=== PATIENT | female | born 2000 | race Caucasian/White ===

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

== ENCOUNTER 2019-05-19 11:33 | Emergency (ER) | payer BC, OTHER ==
[~2019-05-19] VITALS: Ht 160 cm; Wt 49.9 kg
[2019-05-19 11:37] VITALS: BP_SYST 104
--- NOTE | 2019-05-19 11:39 | NUR ---
Placed in room 02 . Placed on cardiac cath lab manager, blood pressure machine and pulse oximeter. To gown for exam. Side rails up.
--- NOTE | 2019-05-19 11:45 | NUR ---
ER Dr. Mcgraw at bedside examining patient.
[2019-05-19] MEDS ORDERED: LORazepam 1 MG TABLET PO ONE (12:00)
[2019-05-19 12:04] LABS: BASOPHILS % (AUTO) 0.4 % (0.0-2.0); EOSINOPHILS # (AUTO) 0.1 K/uL (0.0-0.4); EOSINOPHILS % (AUTO) 2.1 % (0.0-4.0); HEMATOCRIT 38.9 % (36-48); HEMOGLOBIN 12.8 g/dL (12.0-16.0); LYMPHOCYTES % (AUTO) 40.2 % (20.5-51.5); MEAN CORPUSCULAR HEMOGLOBIN 28 pg (27-31); MEAN CORPUSCULAR HGB CONC 33 % (32-36); MEAN CORPUSCULAR VOLUME 87 fL (79.0-98.0); MONOCYTES # (AUTO) 0.3 K/uL (0.0-1.0); MONOCYTES % (AUTO) 6.8 % (1.7-9.3); NEUTROPHILS # (AUTO) 2.5 K/uL (1.8-7.7); NEUTROPHILS % (AUTO) 50.5 % (40.0-70.0); PLATELET COUNT (AUTO) 196 K/uL (130-430); RED CELL DISTRIBUTION WIDTH 12.9 % (9.0-15.0)
--- NOTE | 2019-05-19 12:09 | NUR ---
Patient is awake, alert, and oriented x4. Mother is at bedside. Patient is complaining of palpitations, episodes of dizziness and shaking for 2 weeks. She states she saw her PCP and he suspected anemia, blood tests were done and showed nothing. Patient denies previous medical history.
[2019-05-19 12:23] LABS: CALCIUM 9.4 mg/dL (8.4-11.0); CREATININE 0.84 mg/dL (0.55-1.30); POTASSIUM 4.3 mmol/L (3.5-5.1)
--- NOTE | 2019-05-19 12:42 | NUR ---
DR JAUREGUI AT BEDSIDE TALKING TO PATIENT.
--- NOTE | 2019-05-19 12:59 | NUR ---
Patient given written and verbal discharge instructions and verbalizes understanding. ER MD discussed with patient the results and treatment provided. Patient in stable condition. ID arm band removed. Rx of ANTIVERT AND SUDAFED given. Patient educated on pain management and to follow up with PMD. Pain Scale 0/10. Opportunity for questions provided and answered. Medication side effect fact sheet provided.
[2019-05-19 13:00] VITALS: BP_SYST 104
== END 2019-05-19 12:58 | disposition home or self-care (01) ==
LOC: SED 11:33
DX: R00.2 Palpitations (principal); R42 Dizziness and giddiness; Z86.2 Personal history of diseases of the blood and blood-forming organs and certain disorders involving the immune mechanism; Z79.899 Other long term (current) drug therapy
CPT/HCPCS: 36415; 80048; 81025; 85025; 93005; 99284